=== PATIENT | male | born 1990 | race Caucasian/White ===

== ENCOUNTER 2019-07-03 12:25 | Emergency (ER) | payer BC ==
[~2019-07-03] VITALS: Ht 188 cm; Wt 110.4 kg
[2019-07-03 12:28] VITALS: BP 133/82
--- NOTE | 2019-07-03 13:12 | PHYS DOC ---
Past History Past Medical History: Constipation, Diabetes, Hypothyroid, Other (STAGE III TESTICULAR CANCER) Past Surgical History: No Surgical History Smoking: Less than 1pk/day Alcohol Use: None Drug Use: None Adult General Chief Complaint Chief Complaint: THROAT PROBLEM HPI HPI Patient is a 29-year-old male who has history of stage III testicular cancer, under treatment Since middle 2017 with oncology doctor at [facility]. Patient had finished the treatment last February. Patient was told to follow up with Oncology at [facility] in [place], [place] annually since [facility] closed their oncology service. Patient said since that location is too far away from where he lives, he is interested in follow up with oncology doctor at [facility]. Patient said for more than a month now, he felt like he has a lump in his throat whenever he swallow BUT HE DENIED ANY PAIN, HE HAS BEEN EATING AND DRINKING WITHOUT ANY PROBLEM, HE DENIED ANY FEVER, NO SHORTNESS OF AIR, NO WEIGHT LOSS. NO LOSS OF VOICE. He has followed up with his family doctor about it twice, US of his thyroid and his neck WERE ORDERED TO DONE LAST MONTH AND AGAIN LAST WEEK BUT HE DID NOT WANT TO PAY THE COPAY FOR THE PROCEDURE SO HE CAME HERE TODAY FOR REVALUATION. Review of Systems Review of Systems Constitutional: Denies fever or chills [] Eyes: Denies change in visual acuity, redness, or eye pain [] HENT: Denies nasal congestion or sore throat [] Respiratory: Denies cough or shortness of breath [] Cardiovascular: No additional information not addressed in HPI [] GI: Denies abdominal pain, nausea, vomiting, bloody stools or diarrhea [] : Denies dysuria or hematuria [] Musculoskeletal: Denies back pain or joint pain [] Integument: Denies rash or skin lesions [] Neurologic: Denies headache, focal weakness or sensory changes [] Endocrine: Denies polyuria or polydipsia [] All other systems were reviewed and found to be within normal limits, except as documented in this note. Allergies Allergies Allergies Coded Allergies Type Severity Reaction Last Updated Verified codeine Allergy Intermediate abd pain 02/09/16 Yes methylphenidate Allergy Intermediate Rash 10/07/13 Yes cephalexin Allergy Unknown Unknown 02/09/16 Yes Physical Exam Physical Exam Constitutional: Well developed, well nourished, no acute distress, non-toxic appearance. [] HENT: Normocephalic, atraumatic, bilateral external ears normal, oropharynx moist, no oral exudates, nose normal. BILATERAL TONSILLAR HYPERTROPY, NO EXUDATION, NO ERYTHEMA. NO OBSTUCTION. Eyes: PERRLA, EOMI, conjunctiva normal, no discharge. [] Neck: Normal range of motion, no tenderness, supple, no stridor. There is no swollen lymph node, no mass or lump found on exam. Trachea is midline, no crepitus, no palpable mass... Cardiovascular:Heart rate regular rhythm, no murmur [] Lungs & Thorax: Bilateral breath sounds clear to auscultation [] Abdomen: Bowel sounds normal, soft, no tenderness, no masses, no pulsatile masses. [] Skin: Warm, dry, no erythema, no rash. [] Back: No tenderness, no CVA tenderness. [] Extremities: No tenderness, no cyanosis, no clubbing, ROM intact, no edema. [] Neurologic: Alert and oriented X 3, normal motor function, normal sensory function, no focal deficits noted. [] Psychologic: Affect normal, judgement normal, mood normal. [] EKG EKG [] Radiology/Procedures Radiology/Procedures [] Course & Med Decision Making Course & Med Decision Making Pertinent Labs and Imaging studies reviewed. (See chart for details) Patient is a 29-year-old male who was evaluated in the ER today due to concern of feeling a lump in his throat, examination IN ER did not find any obvious mass or lump. Patient will need to follow with his family doctor for outpatient evaluation. There is no stridor. No throat swelling, no lip swelling. He can talk without a problem, no hoarseness, he can swallow without a problem. There is no need for urgent or emergent emergency Department evaluation of his condition. He was given the oncology clinic number at [facility] for follow up. Dragon Disclaimer Dragon Disclaimer This electronic medical record was generated, in whole or in part, using a voice recognition dictation system. Departure Departure: Impression: Primary Impression: Encounter for medical screening examination Disposition: 01 HOME, SELF-CARE Condition: STABLE Referrals: MARGARITO GUERIN MD (PCP) please call [facility] [phone] for follow up. Patient Instructions: Medical Screening Exam Additional Instructions: JAVON CHAMBERS DO Jul 03, 2019 13:12
== END 2019-07-03 13:10 | disposition home or self-care (01) ==
LOC: ER 12:25
DX: Z00.00 Encounter for general adult medical examination without abnormal findings (principal); E11.9 Type 2 diabetes mellitus without complications; E03.9 Hypothyroidism, unspecified; F17.210 Nicotine dependence, cigarettes, uncomplicated; Z88.5 Allergy status to narcotic agent; Z88.8 Allergy status to other drugs, medicaments and biological substances
CPT/HCPCS: 99281

== ENCOUNTER 2021-01-27 16:58 | Emergency (ER) | payer BC ==
[~2021-01-27] VITALS: Ht 188 cm; Wt 105.8 kg
--- NOTE | 2021-01-27 17:11 | PHYS DOC ---
Past History Past Medical History: Constipation, Diabetes, Hypothyroid, Other Additional Past Medical Histor: embryonal carcinoma, R testicular cancer (BRYCE WYNN DO) Past Surgical History: Cancer Surgery, Other Additional Past Surgical Histo: port catheter (BRYCE WYNN DO) Smoking: Less than 1pk/day Alcohol Use: Occasionally Drug Use: None (BRYCE WYNN DO) Adult General Chief Complaint Chief Complaint: ABDOMINAL PAIN HPI HPI Patient is a 30-year-old male presenting for abdominal issues. 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 States he has been lost to follow-up due to financial constraints of being able to travel to [facility] outpatient for follow-up in fact that [facility] closed. States yesterday noticed his umbilical area was draining a malodorous brown discharge. Provided self care to himself cleaning with hydrogen peroxide and Neosporin cream which provided mild relief but patient states ongoing discharge resumed. Reports history of constipation and feels that he is constipated now but also endorses generalized abdominal pain focal to umbilical area that does not radiate. He is concerned about his overall health given the fact that he has had minimal outpatient follow-up in the setting of his numerous comorbid conditions. Denies any fever, blurred vision, ripping or tearing in chest, abdominal pain, urinary symptoms (BRYCE WYNN DO) Review of Systems Review of Systems Fourteen body systems of review of systems have been reviewed. See HPI for per tinent positives and negative responses, other jenkins all other systems are negative, non-pertinent or non-contributory (BRYCE WYNN DO) Allergies Allergies Allergies Coded Allergies Type Severity Reaction Last Updated Verified codeine Allergy Intermediate abd pain 01/27/21 Yes methylphenidate Allergy Intermediate Rash 01/27/21 Yes cephalexin Allergy Unknown Unknown 01/27/21 Yes hydrocodone Allergy Unknown 01/27/21 Yes (BRYCE WYNN DO) Physical Exam Physical Exam Constitutional: Well developed, well nourished, no acute distress, non-toxic appearance. HENT: Normocephalic, atraumatic, bilateral external ears normal, oropharynx moist, no oral exudates, nose normal. Eyes: PERRLA, EOMI, conjunctiva normal, no discharge. Neck: Normal range of motion, no tenderness, supple, no stridor. Cardiovascular: Heart rate regular, sinus rhythm, no murmurs rubs or gallops, port present to right upper outer chest Lungs & Thorax: Bilateral breath sounds clear to auscultation Abdomen: Bowel sounds normal, soft, umbilicus with brown malodorous discharge present with no obvious fissure, hold or other abnormal finding. Patient is tender to periumbilical area with guarding present, no rebound, no masses, no pulsatile masses. Nonsurgical abdomen, no peritoneal signs Skin: Warm, dry, no erythema, no rash. Back: No tenderness, no CVA tenderness. Extremities: No tenderness, no cyanosis, no clubbing, ROM intact, no edema. Neurologic: Alert and oriented X 3, grossly normal motor & sensory function, no focal deficits noted. Psychologic: Anxious affect and mood (BRYCE WYNN DO) Current Patient Data Vital Signs Vital Signs Date Time Temp Pulse Resp B/P (MAP) Pulse Ox O2 Delivery O2 Flow Rate FiO2 01/27/21 17:07 98.2 91 18 125/72 (89) 96 Room Air Vital Signs Date Time Temp Pulse Resp B/P (MAP) Pulse Ox O2 Delivery O2 Flow Rate FiO2 01/27/21 17:07 98.2 91 18 125/72 (89) 96 Room Air (BRYCE WYNN DO) EKG EKG [] (BRYCE WYNN DO) Radiology/Procedures Radiology/Procedures [] (BRYCE WYNN DO) Impressions: CT chest, abdomen and pelvis with contrast PQRS statement: CT scans at this facility use dose reduction including either automated exposure control, iterative reconstructions, and /or weight based radiation dosing via mA and kV modification when appropriate to reduce radiation dose to as low as reasonably achievable. HISTORY: Right testicular cancer. Metastatic disease to the lungs. Periapical abdominal pain. Contrast: 75 mL Omnipaque 300 intravenous contrast. Chest findings: Heart size normal. Aorta, pulmonary vessels and esophagus are unremarkable. No adenopathy in the chest. Thin linear atelectasis or scarring at the right upper lobe. No pulmonary opacities or nodules. No pleural effusions. Bones are unremarkable. Abdomen findings: Liver, pancreas, adrenal glands, spleen, gallbladder and kidneys are unremarkable. There are some prominent vessels at the right perinephric space bridging between the IVC and lumbar venous plexus. Vessels are otherwise unremarkable. No abdominal fluid or adenopathy. Appendix is negative. No obstruction or inflammatory changes in GI tract. Bones are unremarkable. Pelvis findings: Right orchiectomy. Bladder, prostate, rectum and bones are unremarkable. No fluid or adenopathy. IMPRESSION: 1. No acute process in the chest, abdomen or pelvis. Appendix is negative. 2. No evidence of metastatic disease in the chest, abdomen or pelvis. 3. Right orchiectomy. 4. Thin linear atelectasis or scarring at the right upper lobe apex. Electronically signed by: Estrella Johnson MD (01/27/2021 7:00 PM) [id number] DICTATED AND SIGNED BY: SETRELLA JOHNSON MD DATE: 01/27/211847 CC: MARIANO AUGUSTINE DO; BRYCE WYNN DO; MARGARITO GUERIN MD ~MTH0 0 (MARIANO AUGUSTINE DO) Heart Score C/O Chest Pain: No Risk Factors: Risk Factors: DM, Current or recent (<one month) smoker, HTN, HLP, family history of CAD, obesity. Risk Scores: Risk Factors: DM, Current or recent (<one month) smoker, HTN, HLP, family history of CAD, obesity. (BRYCE WYNN DO) Course & Med Decision Making Course & Med Decision Making ABCs unremarkable. IV access and vitals obtained HPI and physical exam performed, comprehensive ER work-up pursued. Given patient's lack of access and outpatient follow-up with oncology and other specialist, he is requesting CT chest abdomen pelvis to monitor prior sites of metastatic spread which I feel is appropriate. Nonetheless, at this time in care, my shift was ending. Comprehensive signout given to oncoming physician. Please defer to Dr. Augustine's documentation regarding future care of patient while in ER (BRYCE WYNN DO) Course & Med Decision Making The patient's CT is negative for acute findings. There is not appear to be any metastatic disease. His labs are unremarkable. He still has drainage in the umbilicus. There was not evidence of a fistula on CT. This is likely a superficial skin infection that is draining spontaneously. I will treat the patient with clindamycin for 7 days. We will give the first dose in the ER. He is allergic to Keflex. The patient is reassured by his results. He is stable for discharge at this time. (MARIANO AUGUSTINE DO) Dragon Disclaimer Dragon Disclaimer This electronic medical record was generated, in whole or in part, using a voice recognition dictation system. (BRYCE WYNN DO) Departure Departure: Impression: Primary Impression: Cellulitis of umbilicus Disposition: HOME / SELF CARE / HOMELESS Condition: STABLE Referrals: MARGARITO GUERIN MD (PCP) Patient Instructions: Cellulitis, [id number] Scripts Clindamycin Hcl (CLINDAMYCIN HCL) 300 Mg Capsule 1 CAP PO TID for cellulitis for 7 Days, #21 CAP Prov: MARIANO AUGUSTINE DO 01/27/21 BRYCE WYNN DO Jan 27, 2021 17:11 MARIANO AUGUSTINE DO Jan 27, 2021 19:07
[2021-01-27] MEDS ORDERED: IOHEXOL 300 MG/ML 75 ML VIAL. IV ONE (18:00)
[2021-01-27 18:34] LABS: BASO # 0.1 x10^3/uL (0.0-0.2); BASO % 1 % (0-3); EOS # 0.2 x10^3/uL (0.0-0.7); EOS % 3 % (0-3); HEMATOCRIT 43.1 % (39.0-53.0); HEMOGLOBIN 14.4 g/dL (13.0-17.5); LYMPH # 2.5 x10^3/uL (1.0-4.8); LYMPH % 32 % (24-48); MEAN CORPUSCULAR HEMOGLOBIN 30 pg (25-35); MEAN CORPUSCULAR HGB CONC 34 g/dL (31-37); MEAN CORPUSCULAR VOLUME 90 fL (79-100); MONO # 0.5 x10^3/uL (0.0-1.1); MONO % 6 % (0-9); NEUT # 4.6 x10^3uL (1.8-7.7); NEUT % 59 % (31-73); PLATELET COUNT 267 x10^3/uL (140-400); RED CELL DISTRIBUTION WIDTH 13.5 % (11.5-14.5); WHITE BLOOD COUNT 7.9 x10^3/uL (4.0-11.0)
[2021-01-27 18:35] LABS: CALCIUM 8.7 mg/dL (8.5-10.1); CREATININE 0.9 mg/dL (0.7-1.3); GFR 99.1; POTASSIUM 3.8 mmol/L (3.5-5.1)
--- NOTE | 2021-01-27 19:02 | RAD ---
CT chest, abdomen and pelvis with contrast PQRS statement: CT scans at this facility use dose reduction including either automated exposure cont rol, iterative reconstructions, and /or weight based radiation dosing via mA and kV modification when appropriate to reduce radiation dose to as low as reasonably achievable. HISTORY: Right testicular cancer. Metastatic disease to the lungs. Periapical abdominal pain. Contrast: 75 mL Omnipaque 300 intravenous contrast. Chest findings: Heart size normal. Aorta, pulmonary vessels and esophagus are unremarkable. No adenop athy in the chest. Thin linear atelectasis or scarring at the right upper lobe. No pulmonary opacitie s or nodules. No pleural effusions. Bones are unremarkable. Abdomen findings: Liver, pancreas, adrenal glands, spleen, gallbladder and kidneys are unremarkable. There are some prominent vessels at the right perinephric space bridging between the IVC and lumbar v enous plexus. Vessels are otherwise unremarkable. No abdominal fluid or adenopathy. Appendix is negat rcahana. No obstruction or inflammatory changes in GI tract. Bones are unremarkable. Pelvis findings: Right orchiectomy. Bladder, prostate, rectum and bones are unremarkable. No fluid or adenopathy. IMPRESSION: 1. No acute process in the chest, abdomen or pelvis. Appendix is negative. 2. No evidence of metastatic disease in the chest, abdomen or pelvis. 3. Right orchiectomy. 4. Thin linear atelectasis or scarring at the right upper lobe apex. Electronically signed by: Temo Johnson MD (01/27/2021 7:00 PM) [id number]
[2021-01-27] MEDS ORDERED: CLIN300C9 PO (19:15)
[2021-01-27 19:30] VITALS: BP 115/67
[2021-01-27] MEDS ORDERED: CLINDAMYCIN HCL 150 MG CAPSULE PO ONE (19:30)
== END 2021-01-27 19:31 | disposition home or self-care (01) ==
LOC: ER 16:58
DX: L03.316 Cellulitis of umbilicus (principal); E11.9 Type 2 diabetes mellitus without complications; E03.9 Hypothyroidism, unspecified; F17.200 Nicotine dependence, unspecified, uncomplicated; Z85.118 Personal history of other malignant neoplasm of bronchus and lung; Z88.5 Allergy status to narcotic agent; Z88.1 Allergy status to other antibiotic agents; Z88.8 Allergy status to other drugs, medicaments and biological substances
CPT/HCPCS: 36415; 71260; 74177; 80048; 85025; 99285; Q9967

== ENCOUNTER 2021-08-04 23:52 | Emergency (ER) | payer BC ==
[~2021-08-04] VITALS: Ht 188 cm; Wt 105.2 kg
[~2021-08-04 23:52] MED LIST: CLIN-95 PO
--- NOTE | 2021-08-05 | PHYS DOC ---
Past History Past Medical History: Anxiety, Constipation, Diabetes, Hypothyroid, Other Additional Past Medical Histor: embryonal carcinoma, R testicular cancer Past Surgical History: Cancer Surgery, Other Additional Past Surgical Histo: port catheter; lower abd lap Smoking: Less than 1pk/day Alcohol Use: Occasionally Drug Use: None General Adult HPI: HPI: ".. I got a port.. I want it out... it was put in 2018 for my treatments testicle cancer...I got worried that maybe it was getting infected or something.. the more I thought the.. more anxious I became.. but since I ve been here. I calmed down.. and now . I really don't want anything done.. " Patient is a 31 year old male who presents with above hx and worried the old port should come out. Site does not appear to be red or inflamed. Site is not tender. Patient does have fever. Patient gives a history of anxiety. Patient currently does not want any lab draws. Patient says he will come back if he has any concerns and that he will follow up with pt. follows with Dr. Ulices Leung Patient exhibits UCAR capacity. Patient refused x-ray at this time ,advised patient we could at least draw labs however patient refused. Patient states he sometimes has anxiety and panic attacks and feels everything is back to normal for him. Advised patient return if any symptoms of fever or localized redness or any other concerns. Patient follows with Dr. Guerin/. Patient followed at in [place] when he had chemotherapy. Patient states currently not on any immunosuppressants. Not currently on any meds. Patient states last time he had any antibiotics was in January 2021 for a cellulitis of his umbilicus. Patient does still smoke... Does have a history of diabetes, cancer, hypothyroidism, and testicle cancer Review of Systems: Review of Systems: Constitutional: Denies fever or chills Eyes: Denies change in visual acuity HENT: Denies nasal congestion or sore throat Respiratory: Denies cough or shortness of breath Cardiovascular: Denies chest pain or edema . Worried about his port site. GI: Denies abdominal pain, nausea, vomiting, bloody stools or diarrhea : Denies dysuria Musculoskeletal: Denies back pain or joint pain Integument: Denies rash Neurologic: Denies headache, focal weakness or sensory changes Endocrine: Denies polyuria or polydipsia Lymphatic: Denies swollen glands Psychiatric: Denies depression or anxiety Family History: Family History: Noncontributory to presentation Current Medications: Current Meds: See nursing for home meds Allergies: Allergies: Allergies Coded Allergies Type Severity Reaction Last Updated Verified codeine Allergy Intermediate abd pain 08/04/21 Yes methylphenidate Allergy Intermediate Rash 08/04/21 Yes cephalexin Allergy Unknown Unknown 08/04/21 Yes hydrocodone Allergy Unknown 08/04/21 Yes Physical Exam: PE: Constitutional: no acute distress, non-toxic appearance. [] HENT: Normocephalic, atraumatic, bilateral external ears normal, oropharynx moist, no oral exudates, nose normal. [] Eyes: PERRLA, EOMI, conjunctiva normal, no discharge. [] Neck: Normal range of motion, no tenderness, supple, no stridor. [] Cardiovascular:Heart rate regular rhythm, no murmur [] Lungs & Thorax: Bilateral breath sounds clear to auscultation [] The port site does not appear to be red or tender or warm. Old surgical scar Abdomen: Bowel sounds normal, soft, no tenderness, no masses, no pulsatile masses. Old surgery sites Skin: Warm, dry, no erythema, no rash. [] Back: No tenderness, no CVA tenderness. [] Extremities: No tenderness, no cyanosis, no clubbing, ROM intact, no edema. [] Neurologic: Alert and oriented X 3, normal motor function, normal sensory function, no focal deficits noted. [] Psychologic: Affect anxious which eventually resolved, judgement normal, mood normal. [] EKG: EKG: Refused [] Radiology/Procedures: Radiology/Procedures: Refused [] Heart Score: C/O Chest Pain: N/A Risk Factors: Risk Factors: DM, Current or recent (<one month) smoker, HTN, HLP, family h istory of CAD, obesity. Risk Scores: Score 0 - 3: 2.5% MACE over next 6 weeks - Discharge Home Score 4 - 6: 20.3% MACE over next 6 weeks - Admit for Clinical Observation Score 7 - 10: 72.7% MACE over next 6 weeks - Early Invasive Strategies Course & Med Decision Making: Course & Med Decision Making Pertinent Labs and Imaging studies reviewed. (See chart for details) Refused labs Advised patient we get baseline x-rays and labs however patient felt he is had an anxiety attack. Patient exhibits UCAR capacity. States he just wants to be discharged and he does follow-up with his primary if he becomes worried again. Impression: 1. Patient worried his access port has been in too long ( 2017) 2. History of anxiety and panic attacks 3. History of testicular cancer with mets to lung [] Dragon Disclaimer: Dragon Disclaimer: This electronic medical record was generated, in whole or in part, using a voice recognition dictation system. Departure Departure: Referrals: MARGARITO GUERIN MD (PCP) Hank Disclaimer This chart was dictated in whole or in part using Voice Recognition software in a busy, high-work load, and often noisy Emergency Department environment. It may contain unintended and wholly unrecognized errors or omissions. Dragon Disclaimer This chart was dictated in whole or in part using Voice Recognition software in a busy, high-work load, and often noisy Emergency Department environment. It may contain unintended and wholly unrecognized errors or omissions. MAJO JACKSON MD Aug 05, 2021 00:00
[2021-08-05 00:02] VITALS: BP 126/68
== END 2021-08-05 02:00 | disposition home or self-care (01) ==
LOC: ER 23:52
DX: Z45.2 Encounter for adjustment and management of vascular access device (principal); F41.9 Anxiety disorder, unspecified; E11.9 Type 2 diabetes mellitus without complications; E03.9 Hypothyroidism, unspecified; F17.200 Nicotine dependence, unspecified, uncomplicated; Z85.47 Personal history of malignant neoplasm of testis; Z85.118 Personal history of other malignant neoplasm of bronchus and lung; Z88.5 Allergy status to narcotic agent; Z88.1 Allergy status to other antibiotic agents; Z88.8 Allergy status to other drugs, medicaments and biological substances
CPT/HCPCS: 99281